=== PATIENT | female | born 1960 | race Asian ===

== ENCOUNTER 2023-07-27 09:24 | Emergency (ER) | payer BC ==
[~2023-07-27] VITALS: Ht 165.1 cm; Wt 79.4 kg
[2023-07-27] MEDS ORDERED: LOSA25TA27 PO (09:35)
[2023-07-27] MEDS ORDERED: RIVA10TA PO (09:35)
[2023-07-27] MEDS ORDERED: OMEP20CA15 PO (09:35)
[2023-07-27] MEDS ORDERED: TADA20TA31 PO (09:35)
[2023-07-27] MEDS ORDERED: ROSU10TA2 PO (09:35)
[2023-07-27 10:06] LABS: *BILIRUBIN,URIN NEGATIVE (NEGATIVE); *CLARITY,URINE CLEAR (CLEAR); *COLOR,URINE YELLOW (YELLOW); *KETONES,URINE NEGATIVE (NEGATIVE); *PROTEIN,URINE NEGATIVE (NEGATIVE); *UROBILINOGEN,URINE 0.2 E.U./dl (NORMAL); LEUKOCYTE ESTERASE ,URINE NEGATIVE (NEGATIVE); NITRITE, URINE NEGATIVE (NEGATIVE); PH,URINE 5.5 (5.0-8.0); UGLUCOSE NEGATIVE (NEGATIVE)
[2023-07-27 10:12] LABS: BASOPHILS % (AUTO) 0.3 % (0.0-2.0); EOSINOPHILS # (AUTO) 0.1 K/uL (0.0-0.7); EOSINOPHILS % (AUTO) 1.7 % (0.0-7.0); HEMATOCRIT 37.1 % (31.2-41.9); HEMOGLOBIN 12.9 g/dL (10.9-14.3); LYMPHOCYTES # (AUTO) 1.3 K/uL (0.8-4.8); LYMPHOCYTES % (AUTO) 27.7 % (20.5-51.5); MEAN CORPUSCULAR HEMOGLOBIN 31.6 uug (24.7-32.8); MEAN CORPUSCULAR HGB CONC 35 g/dL (32.3-35.6); MEAN CORPUSCULAR VOLUME 91.1 fL (75.5-95.3); MONOCYTES # (AUTO) 0.4 K/uL (0.1-1.30); MONOCYTES % (AUTO) 9.4 % (0.0-11.0); NEUTROPHILS # (AUTO) 2.8 K/uL (1.8-8.9); NEUTROPHILS % (AUTO) 60.9 % (38.5-71.5); PLATELET COUNT (AUTO) 186 K/uL (179-408); RED BLOOD CELL COUNT(AUTO) 4.07 MIL/uL (3.63-4.92); RED CELL DISTRIBUTION WIDTH 12.8 % (12.3-17.7); WHITE BLOOD COUNT (AUTO) 4.5 K/uL (3.8-11.8)
[2023-07-27 10:15] LABS: *BLOOD, URINE TRACE (NEGATIVE)
[2023-07-27 10:19] LABS: DIFFERENTIAL COMMENT 1
[2023-07-27] MEDS ORDERED: IOHEXOL 300MG/ML 100 ML INFUS..BTL ONE (10:21)
[2023-07-27] MEDS ORDERED: SWABABLE VALVE TRANSFER SET EA MC ONE (10:21)
[2023-07-27 10:23] LABS: CALCIUM 8.8 mg/dL (8.5-10.1); CREATININE 0.7 mg/dL (0.6-1.3); POTASSIUM 3.8 mmol/L (3.5-5.1)
[2023-07-27] MEDS ORDERED: IV NORMAL SALINE 250 ML IV ONE (10:23)
[2023-07-27 10:29] LABS: ALBUMIN 3.9 g/dL (3.4-5.0); BILIRUBIN,DIRECT 0.1 mg/dL (0.0-0.2); BILIRUBIN,TOTAL 0.6 mg/dL (0.2-1.0); TOTAL PROTEIN, SERUM 7.5 g/dL (6.4-8.2)
[2023-07-27 10:53] LABS: BACTERIA,URINE NONE SEEN /HPF (NONE SEEN); RBC,URINE 0-3 /HPF (0-3); SQUAMOUS EPITHELIAL CELL,UR FEW /HPF (NONE SEEN); WBC,URINE 0-3 /HPF (0-3)
[2023-07-27] MEDS ORDERED: FLAS1EAC2 TP (12:22)
[2023-07-27] MEDS ORDERED: FLAS1KIT2 TP (12:22)
[2023-07-27 12:46] VITALS: BP 128/67; TEMP 98.3; O2SAT 98
== END 2023-07-27 12:46 | disposition home or self-care (01) ==
LOC: ER 09:24
DX: G89.29 Other chronic pain (principal); R10.31 Right lower quadrant pain; E78.5 Hyperlipidemia, unspecified; Z79.899 Other long term (current) drug therapy
CPT/HCPCS: 99285; 74177; 80076; 80048; 81001; 85025; 85651; 86140; 36415; Q9967; J7040; A4606; A4663

== ENCOUNTER 2023-09-29 08:40 | Emergency (ER) | payer BC ==
[~2023-09-29] VITALS: Ht 160 cm; Wt 59.0 kg
[~2023-09-29 08:40] MED LIST: FLAS1EAC2 TP; FLAS1KIT2 TP; LOSA25TA27 PO; OMEP20CA15 PO; RIVA10TA PO; ROSU10TA2 PO; TADA20TA31 PO
[2023-09-29 09:15] LABS: BASOPHILS % (AUTO) 0.3 % (0.0-2.0); EOSINOPHILS # (AUTO) 0.1 K/uL (0.0-0.7); EOSINOPHILS % (AUTO) 2.1 % (0.0-7.0); HEMATOCRIT 39.2 % (31.2-41.9); HEMOGLOBIN 12.8 g/dL (10.9-14.3); LYMPHOCYTES # (AUTO) 1.4 K/uL (0.8-4.8); LYMPHOCYTES % (AUTO) 39.8 % (20.5-51.5); MEAN CORPUSCULAR HGB CONC 33 g/dL (32.3-35.6); MEAN CORPUSCULAR VOLUME 94.6 fL (75.5-95.3); MONOCYTES # (AUTO) 0.3 K/uL (0.1-1.30); MONOCYTES % (AUTO) 9.3 % (0.0-11.0); NEUTROPHILS # (AUTO) 1.7 K/uL (1.8-8.9); NEUTROPHILS % (AUTO) 48.5 % (38.5-71.5); PLATELET COUNT (AUTO) 188 K/uL (179-408); RED BLOOD CELL COUNT(AUTO) 4.14 MIL/uL (3.63-4.92); WHITE BLOOD COUNT (AUTO) 3.5 K/uL (3.8-11.8)
[2023-09-29 09:18] LABS: DIFFERENTIAL COMMENT 1
[2023-09-29] MEDS ORDERED: ACETAMINOPHEN 500 MG TABLET ONE (09:20)
[2023-09-29 09:23] LABS: CREATININE 0.8 mg/dL (0.6-1.3); POTASSIUM 4.1 mmol/L (3.5-5.1)
[2023-09-29] MEDS: IV NORMAL SALINE 1000 ML BAG IV ONE (09:53)
[2023-09-29] MEDS: ACETAMINOPHEN 500 MG TABLET PO ONE (09:53)
[2023-09-29 10:20] LABS: *BILIRUBIN,URIN NEGATIVE (NEGATIVE); *BLOOD, URINE 1+ (NEGATIVE); *CLARITY,URINE CLEAR (CLEAR); *COLOR,URINE YELLOW (YELLOW); *KETONES,URINE NEGATIVE (NEGATIVE); *PROTEIN,URINE NEGATIVE (NEGATIVE); *UROBILINOGEN,URINE 0.2 E.U./dl (NORMAL); LEUKOCYTE ESTERASE ,URINE NEGATIVE (NEGATIVE); NITRITE, URINE NEGATIVE (NEGATIVE); PH,URINE 5.5 (5.0-8.0); UGLUCOSE NEGATIVE (NEGATIVE)
[2023-09-29 10:51] LABS: BACTERIA,URINE MODERATE /HPF (NONE SEEN); RBC,URINE 0-3 /HPF (0-3); SQUAMOUS EPITHELIAL CELL,UR FEW /HPF (NONE SEEN); WBC,URINE 0-3 /HPF (0-3)
[2023-09-29 12:00] VITALS: BP 119/79; TEMP 98; O2SAT 100
== END 2023-09-29 12:01 | disposition home or self-care (01) ==
LOC: ER 08:40
DX: R42 Dizziness and giddiness (principal); E86.0 Dehydration; R51.9 Headache, unspecified; E78.5 Hyperlipidemia, unspecified; I10 Essential (primary) hypertension; K21.9 Gastro-esophageal reflux disease without esophagitis; Z86.711 Personal history of pulmonary embolism; Z79.52 Long term (current) use of systemic steroids; Z79.899 Other long term (current) drug therapy; Z20.822 Contact with and (suspected) exposure to COVID-19
CPT/HCPCS: 99285; 70450; 71045; 87426; 80048; 81001; 84443; 85025; 36415; 93005 ×2; 87086; J7040; A4606; A4663; A9150